=== PATIENT | male | born 1945 | race Caucasian/White ===

== ENCOUNTER 2023-07-06 17:23 | Observation (INO) ==
[2023-07-06 18:42] LABS: ABS Basophils 0.1 10^3/uL (0.0-0.1); ABS Eosinophils 0.2 10^3/uL (0.0-0.5); ABS Monocytes 0.6 10^3/uL (0.0-1.1); ABS Neutrophils 6.8 10^3/uL (1.5-7.6); ABS Nucleated RBC 0.01 10^3/ul; Eosinophil % 1.9 %; Hemoglobin 15.7 g/dL (13.2-16.3); Lymphocyte % 11.6 %; Mean Corpuscular Hgb Conc 34.1 g/dL (31-36); Mean Corpuscular Volume 94.1 fL (80-97); Mean Platelet Volume 8.5 fL (7.5-11.2); Nucleated Red Blood Cells % 0.1 %/100WBC (0.0-0.8); Platelet Count 184 10^3/uL (150-450); Red Blood Count 4.89 10^6/uL (4.06-5.63); Red Cell Distribution Width 12.5 % (12-17); Urine Appearance Clear; Urine Bilirubin Negative (Negative); Urine Blood Negative (Negative); Urine Color Light-Yellow; Urine Glucose Negative (Negative); Urine Ketones 2+ (Negative); Urine Nitrite Negative (Negative); Urine Protein Negative (Negative); Urine Specific Gravity 1.013 (1.002-1.030); Urine Urobilinogen Negative (Negative); White Blood Count 8.6 10^3/uL (3.6-10.2)
[2023-07-06 19:19] LABS: Albumin 4.7 g/dL (3.2-5.2); Albumin/Globulin Ratio 1.9 (1-3); C Reactive Protein 28.67 mg/L (<8.01); Calcium 9.6 mg/dL (8.6-10.3); Creatinine, Serum 0.86 mg/dL (0.67-1.17); Globulin 2.5 g/dL (2-4); Potassium 4.4 mmol/L (3.5-5.0); Total Protein 7.2 g/dL (6.4-8.9); eGFR CKD-EPI 90.3 (>60)
[2023-07-06] MEDS: Iohexol 300 (CONTRAST) 10 ML SDV IV ONE (19:46)
[2023-07-06] MEDS: Lactated Ringers 1000 ml BAG 1,000 ML IV ONE (19:54)
[2023-07-06] MEDS: Piperacillin/Tazobac 3.375 BAG 3.375 GM/100 ML BAG IV ONE (20:40)
[2023-07-06] MEDS ORDERED: fentaNYL 100 mcg/2 ml 50 MCG/ML VIAL ONE (21:35)
[2023-07-06] MEDS ORDERED: Lidocaine 2% PF 5 ML VIAL ONE (21:36)
[2023-07-06] MEDS ORDERED: Propofol 10 MG/ML 20 ML BTL ONE (21:36)
[2023-07-06] MEDS ORDERED: Rocuronium 50 mg VIAL 10 mg/ml 5 ml VIAL (50 mg) ONE (21:36)
[2023-07-06] MEDS ORDERED: Bupivacaine 0.5% SDV PF 30ML VIAL ONE (21:45)
[2023-07-06] MEDS ORDERED: Lidocaine 1% w EPI 1:100,000 MDV 20 ML VIAL ONE (21:45)
[2023-07-06] MEDS ORDERED: Dexamethasone IV 4 MG/ML VIAL 1 ml VIAL ONE (22:27)
[2023-07-06] MEDS ORDERED: Ondansetron 4 mg VIAL 2 MG/ML 2 ml VIAL ONE ×2 (22:27→23:43)
[2023-07-06] MEDS ORDERED: Acetaminophen IV 1 GM/100ML 1,000 MG/100 ML BAG IV ONE (22:28)
[2023-07-06] MEDS ORDERED: HYDROmorphone 0.5 MG/0.5 ML SYRINGE ONE (22:34)
[2023-07-06] MEDS ORDERED: Glycopyrrolate IV 0.2 MG/ML 1 ML VIAL ONE (22:53)
[2023-07-06] MEDS ORDERED: Ondansetron 4 mg VIAL 2 MG/ML 2 ml VIAL IV PRN (23:02)
[2023-07-06] MEDS ORDERED: oxyCODONE/Acetamin 5/325 mg TAB PO PRN (23:02)
[2023-07-06] MEDS ORDERED: fentaNYL 100 mcg/2 ml 50 MCG/ML VIAL IV PRN (23:23)
[2023-07-06] MEDS ORDERED: HYDROmorphone 1 MG/1 ML SYRINGE IV PRN (23:23)
[2023-07-06] MEDS ORDERED: Naloxone 0.4 mg VIAL 0.4 mg/ml 1 ml VIAL IV PRN (23:23)
[2023-07-06] MEDS ORDERED: Metoclopramide 5 MG/ML VIAL (10 mg) ONE (23:42)
[2023-07-06] MEDS: Ondansetron 4 mg VIAL 2 MG/ML 2 ml VIAL IV PRN (23:43)
[2023-07-06] MEDS: Metoclopramide 5 MG/ML VIAL (10 mg) IV SLOW PU ONE (23:50)
[2023-07-07] MEDS: Lactated Ringers 1000 ml BAG 1,000 ML IV SCH (00:36)
[2023-07-07 11:21] VITALS: BP 146/68
[2023-07-07] MEDS ORDERED: Heparin 5000 UNITS/ML 1 mL VIAL SUBCUT SCH (14:00)
== END 2023-07-07 10:43 | disposition home or self-care (01) ==
LOC: EDHOLD 17:23 → ED 17:23 → EDHOLD 21:41 → SSU 07-07 00:37
PROVIDERS: ADMIT Surgery; ATTEND Surgery